=== PATIENT | female | born 2000 | race Caucasian/White ===

== ENCOUNTER 2019-05-06 15:13 | Outpatient (CLI) | payer OTHER, SELFPAY ==
[2019-05-06 15:26] VITALS: BP 102/67; PULSE 95
[2019-05-06 15:45] VITALS: BP 104/81; PULSE 118
--- NOTE | 2019-05-06 18:34 | PM.OBTRLD ---
OB - Triage/Final Diagnosis Evaluation Vital signs: Vital Signs - 24 hr 05/06/19 15:26 05/06/19 15:45 Pulse Rate 95 118 H Blood Pressure 102/67 104/81 Final Diagnosis (1) Vaginal discharge during in third trimester: Code(s): O26.893 - Other specified related conditions, third trimester; N89.8 - Other specified noninflammatory disorders of vagina Status: Acute Plan: Pt concerned for rupture of membranes. ROM testing negative. NST reactive and reassuring. Discharged home w/ precautions.
== END 2019-05-06 16:00 | disposition home or self-care (01) ==
LOC: ANHOBOP 15:23 → ANHOBPP 15:23
PROVIDERS: Visit Provider Obstetrics & Gynecology
DX: O26.859 Spotting complicating pregnancy, unspecified trimester (principal); Z3A.00 Weeks of gestation of pregnancy not specified
CPT/HCPCS: 84112; 99199

== ENCOUNTER 2019-05-22 05:00 | Inpatient (IN) | payer OTHER, SELFPAY ==
[2019-05-22] VITALS (73 sets, daily range): BP systolic 66–185; BP diastolic 40–147; PULSE 60–144; RESP 16–18; TEMP 36.1–37.2; O2SAT 83–100; BMI 26.5
--- NOTE | 2019-05-22 05:00 | LDADM ---
This patient, Ronnie August, was admitted to Labor/Delivery/Recovery 105 on 05/22/19 at 05:00. Plans for labor, pain management and were discussed with patient. Patient/family oriented to hospital policies and general routines including ID bracelet, bed and alarms, visiting hours, pain management, procedures, bathroom and other care routines, personal items, smoking policy, room service/diet and guest tray routines, security routines, and visiting hours. Patient/Family are encouraged to report perceived risks to care and to ask questions if they do not understand what they are told or what they should do. See OBIX for further documentation.
[2019-05-22 05:48] LABS: Basophils Percent Auto 0.4 % (0.2-1.2); Eosinophils Absolute Auto 0.1 K/mm3 (0-0.3); Eosinophils Percent Auto 0.8 % (0-4.4); Hematocrit 32.2 % (37.0-47.0); Hemoglobin 10.9 g/dL (12.0-15.0); Immature Granulocyte Absolute 0.03 K/mm3 (0.00-0.031); Immature Granulocyte Percent A 0.3 % (0-0.5); Lymphocytes Absolute Auto 2.12 K/mm3 (0.9-3.2); Lymphocytes Percent Auto 22.1 % (18.3-44.2); Mean Corpuscular HGB Conc 33.9 g/dl (32-36); Mean Corpuscular Hemoglobin 29.4 pg (26-34); Mean Corpuscular Volume 86.8 fl (80-100); Mean Platelet Volume 11.9 fl (7.4-10.4); Monocytes Absolute Auto 0.5 K/mm3 (0.1-0.6); Monocytes Percent Auto 5.4 % (2.6-8.5); Neutrophils Absolute Auto 6.8 K/mm3 (1.3-6.7); Platelet Count Result 151 k/mm3 (150-375); Red Blood Count 3.71 M/mm3 (4.2-5.4); Red Cell Distribution Width 12.2 % (11.5-14.5); White Blood Count 9.6 K/mm3 (4.5-10.0)
[2019-05-22 06:34] LABS: HIV 1/2 Ab P24 Ag Result Negative (Negative)
[2019-05-22] MEDS: LACTATED RINGERS 1,000 ML 125 ML IV CONT ×4 (06:36→11:32)
[2019-05-22] MEDS: OXYTOCIN 30 UNITS/NS 500 ML 30 UNITS/500 ML BAG IV CONT (06:37)
--- NOTE | 2019-05-22 06:45 | LDADM ---
This patient, Ronnie August, was admitted to Labor/Delivery/Recovery 105 on 05/22/19 at 05:00 for IOL. Plans for labor, pain management and were discussed with patient. Patient/family oriented to hospital policies and general routines including ID bracelet, bed and alarms, visiting hours, pain management, procedures, bathroom and other care routines, personal items, smoking policy, room service/diet and guest tray routines, security routines, and visiting hours. Patient/Family are encouraged to report perceived risks to care and to ask questions if they do not understand what they are told or what they should do. See OBIX for further documentation.
[2019-05-22 08:51] LABS: Rapid Plasma Reagin Non-Reactive (NonReactive)
[2019-05-22] MEDS: TERBUTALINE SULFATE 1 MG/ML VIAL 0.25 MG SUB-Q (11:27)
--- NOTE | 2019-05-22 12:55 | WPDHPUPDATE1 ---
History and Physical Update Update Date/Time: 05/22/19 12:55 History and Physical has been reviewed, including an updated exam of the patient. There are NO changes in the patient's condition. Risks, benefits, and alternatives have been discussed and questions answered. Patient agrees to proceed with procedure.
--- NOTE | 2019-05-22 12:55 | WPDOBADMIT ---
Obstetrics - Admit Note Admission Note: record reviewed. No pertinent additions to the history and/or any subsequent changes in the physical findings that are not consistent with the expected course of the were found. Additions to the history and/or subsequent changes in the physical findings follow. None.
--- NOTE | 2019-05-22 12:56 | PM.OBPRVD ---
OB - Delivery Note Procedure Delivery date: 05/22/19 Route of delivery: Episiotomy description: None Laceration description: None Specimen: Yes (placenta/IUGR) Estimated blood loss (mL): 200 Anesthesia type: Epidural Disposition: floor Narrative: Patient prepped and draped in usual manner for this procedure. Maternal expulsive efforts readily delivered vertex with nuchal cord reduced x2. Further effort delivered the rest the baby without difficulty. Cord was clamped and placenta delivered spontaneously. Cervix vagina and vulva were inspected no lacerations or tears. Uterus was well contracted. This point seizure was considered terminated immediate postop condition mother baby were both excellent. Baby Weeks of gestation at delivery: 38 gender: Female Weight (pounds): 5 Weight (ounces): 15 presentation: vertex Placenta delivery description: Spontaneous cord vessel description: 3 Vessels score one minute: 9 score five minutes: 9
[2019-05-22] MEDS: OXYTOCIN 30 UNITS/NS 500 ML 30 UNITS/500 ML BAG 125 UNITS IV CONT (13:25)
[2019-05-22] MEDS: IBUPROFEN 600 MG TABLET PO (14:49)
[2019-05-22] MEDS: WITCH HAZEL 40 PADS 1 PAD TOPICAL (14:50)
[2019-05-22] MEDS: BENZOCAINE 20% AER SPR (*SP) 56 GM CAN 1 SPRAY TOPICAL (14:50)
--- NOTE | 2019-05-22 16:30 | PC.NURSE ---
PT arrived on unit via wheelchair accompanied by significant other and infant and taken to room 280. PT oriented to room and surrounding area. PT introductions made and plan of care discussed per post , pain management, bottle feeding, daily care activities. PT verbalized understanding of such care.
[2019-05-22] MEDS: ACETAMINOPHEN 325 MG TABLET 650 MG PO (17:28)
[2019-05-23] MEDS: IBUPROFEN 600 MG TABLET PO ×4 (02:25→22:11)
[2019-05-23] MEDS: ACETAMINOPHEN 325 MG TABLET 650 MG PO (03:25)
[2019-05-23 05:34] LABS: Hematocrit 33.3 % (37.0-47.0); Hemoglobin 10.8 g/dL (12.0-15.0)
--- NOTE | 2019-05-23 07:38 | PM.OBDSVD ---
OB - DS: Summary OB Procedures : None OB Procedures Intrapartum: Spontaneous Vag Delivery OB Procedures: : None Time Spent with Patient Time attestation: Total time spent providing and/or coordinating discharge services: DS: Data Data Completed and Pending Pending studies at discharge: Pending at discharge 05/22/19 12:51 Surgical [PTH] Routine Labs on day of discharge: Labs from last 24 hours 05/23/19 05/22/19 05/22/19 04:36 05:36 05:36 Hgb 10.8 L Hct 33.3 L RPR Non-reactive Blood Type A Positive Antibody Screen Negative Discharge Plan Discharge Discharging Clinician: Evens Richard Patient Disposition: Home, Self-Care Activity: as tolerated Diet: as tolerated Patient Instructions: Antibiotic Form Stand Alone Forms: General Discharge Information Follow-up/Referrals: Evens Richard MD [Physician] - 3 Weeks Discharge Medications: New hydrocodone-acetaminophen 5-325 mg Tablet 1 tab PO Q3H PRN (Reason: Moderate Pain (4-6)) Qty: 20 RF: 0 ibuprofen 600 mg Tablet 600 mg PO Q6H PRN (Reason: Cramping) Qty: 30 RF: 0 Continued PNV cmb#95-ferrous fumarate-FA [] 28 mg iron- 800 mcg Tablet 1 tablet PO DAILY RF: 0 Discontinued ondansetron 4 mg Tablet,Disintegrating 4 mg PO Q12H PRN (Reason: Nausea) Qty: 28 RF: 0 Date of admission: 05/22/19 05:00 Primary Care Provider: UNKNOWN,DOCTOR Admitting Provider: Evens Richard Attending physician on admission: Evens Richard
[2019-05-23 07:55] VITALS: BP 103/61; PULSE 70; RESP 16; TEMP 37.4; O2SAT 97
[2019-05-23] MEDS: DOCUSATE SODIUM 100 MG CAPSULE PO (09:17)
--- NOTE | 2019-05-23 14:47 | WPDANLDPN2 ---
Anes-Prog Note L&D Date/Time: 05/23/19 14:47 Comfortable throughout: labor and delivery Neuraxial method: epidural Epidural/Spinal procedure site: clean & non-tender Neuro status: Neuro function grossly intact. Cardiovascular status: normal Respiratory status: normal Airway patency: baseline Mental status: baseline Post-Op hydration status: normal Vital Signs: Last Vital Signs Temp 37.4 C 05/23/19 07:55 Pulse 70 05/23/19 07:55 Resp 16 05/23/19 07:55 BP 103/61 05/23/19 07:55 Pulse Ox 97 05/23/19 07:55 I/O: Intake & Output 05/22/19 05/23/19 05/23/19 23:59 07:59 15:59 Intake Total 1000 Balance 1000 Post-procedural complaints: none Patient feedback: Patient satisfied with anesthetic care.
[2019-05-23 20:35] VITALS: BP 93/55; PULSE 72; RESP 16; TEMP 36.5; O2SAT 100
[2019-05-24] MEDS: IBUPROFEN 600 MG TABLET PO ×2 (03:31→12:44)
--- NOTE | 2019-05-24 07:00 | PC.NURSE ---
Pt introductions made and plan of care discussed per post , pain management, bottle feeding, daily care activities and pending discharge to home. PT verbalized understanding of such care.
[2019-05-24] MEDS: DOCUSATE SODIUM 100 MG CAPSULE PO (08:24)
[2019-05-24 08:30] VITALS: BP 120/77; PULSE 63; RESP 18; TEMP 37.3; O2SAT 97
--- NOTE | 2019-05-24 12:30 | PC.NURSE ---
PT c/o nausea and feeling achy. PT wanted to go home and not wait for anesthesia to evaluate hip and left leg discomfort. PT states its feeding better. PT states not having diarrhea and no fever was indicated at this time. PT denies sob, cough or sore throat or any respiratory issues.PT states feeling better.
--- NOTE | 2019-05-24 13:00 | PC.NURSE ---
PT received discharge instructions per protocol and verbalized understanding of such instructions.
--- NOTE | 2019-05-24 13:30 | PC.NURSE ---
Anesthesia here to evaluate pt's discomfort with left leg and left hip.
--- NOTE | 2019-05-24 13:36 | WPDANESPN ---
Anes - Prog Note Post-Op Date/Time: 05/24/19 13:36 Cardiovascular status: normal Respiratory status: normal Airway patency: baseline Mental status: baseline Post-Op hydration status: normal Vital Signs: Last Vital Signs Temp 99.1 F 05/24/19 08:30 Pulse 63 05/24/19 08:30 Resp 18 05/24/19 08:30 BP 120/77 05/24/19 08:30 Pulse Ox 97 05/24/19 08:30 Laboratory Tests 05/23/19 04:36 Post-procedural complaints: none and other (leg discomfort) Patient Feedback: Patient satisfied with anesthetic care. Other Findings: follow up regarding pt complaints of left leg discomfort. pt post uneventful labor epidural insertion & vaginal delivery. describes sensation as shooting pains down leg . pt denies difficulty with ambulation or other complications. preparing for discharge. reassurance provided. encouraged pt to call department with any concerns.
--- NOTE | 2019-05-24 13:45 | PC.NURSE ---
PT discharged to home ambulatory accompanied by significant other and and taken to waiting car. Follow up appts confirmed
[2019-05-27 08:11] VITALS: BP 109/73; PULSE 95; RESP 16; TEMP 36.6; O2SAT 98
--- NOTE | 2019-05-27 11:57 | PM.OBDSVD ---
OB - DS: Summary OB Procedures : None OB Procedures Intrapartum: Spontaneous Vag Delivery OB Procedures: : None Time Spent with Patient Time attestation: Total time spent providing and/or coordinating discharge services: DS: Data Data Completed and Pending Completed studies during hospitalization: Pending at discharge 05/22/19 12:51 Surgical [PTH] Routine Discharge Plan Discharge Discharging Clinician: Evens Richard Patient Disposition: Home, Self-Care Activity: as tolerated Diet: as tolerated Discharge Instructions: Education: Mom and Baby Guide Given to: Mother Follow-Up: Call your delivering provider's office for an appointment to be seen in: 3 weeks Mom and baby should come to the [facility] for the follow-up appointment. Appointment Date/Time: May 27, 2019 at 8:00 am What to expect at your follow-up visit: Blood Pressure Check Call [phone] if you are unable to keep your appointment time. BREAST CARE: 1. Wear a snug supportive bra. 2. For engorgement discomfort: Bottle Feeding: A. May apply ice packs PERINEAL CARE: 1. Until bleeding stops, use your jocy bottle after urinating 2. Change your pad frequently throughout the day 3. You may take sitz baths several times a day (fill your bathtub with warm water and soak for 20 minutes.) Do NOT bathe in the water 4. No tub baths until seen by your physician - You may shower ACTIVITY: 1. Rest as much as possible. 2. Do not exercise or lift anything heavier than your baby (such as laundry or other children.) 3. Avoid stairs or driving as much as possible. 4. Do not put anything into the vagina. No douching, tampons, or sexual activity until seen by physician. NOTIFY PHYSICIAN IF YOU HAVE ANY QUESTIONS OR IF ANY OF THE FOLLOWING SYMPTOMS OCCUR: 1. If your perineum becomes red, swollen, or more painful than what you have experienced in the hospital. 2. If your vaginal bleeding becomes foul smelling. 3. If your vaginal bleeding becomes more heavy than a period or if your bleeding changes from pink to bright red. However, you may pass an occasional walnut-sized clot once or twice for the first week . 4. If you experience a sharp, shooting pain in you calves. 5. If you discover a hard, reddened area on your breast or if you experience flu-like symptoms. DIET: 1. Eat regular, well-balanced meals. 2. Drink plenty of fluids daily. If , drink to thirst. Patient Instructions: Antibiotic Form Stand Alone Forms: General Discharge Information Follow-up/Referrals: Evens Richard MD [Physician] - 3 Weeks Discharge Medications: New hydrocodone-acetaminophen 5-325 mg Tablet 1 tab PO Q3H PRN (Reason: Moderate Pain (4-6)) Qty: 20 RF: 0 ibuprofen 600 mg Tablet 600 mg PO Q6H PRN (Reason: Cramping) Qty: 30 RF: 0 Continued PNV cmb#95-ferrous fumarate-FA [] 28 mg iron- 800 mcg Tablet 1 tablet PO DAILY RF: 0 Discontinued ondansetron 4 mg Tablet,Disintegrating 4 mg PO Q12H PRN (Reason: Nausea) Qty: 28 RF: 0 Date of admission: 05/22/19 05:00 Primary Care Provider: UNKNOWN,DOCTOR Admitting Provider: Evens Richard Discharge Date/Time: 05/24/19 13:45 Attending physician on admission: Evens Ricahrd
== END 2019-05-24 13:45 | disposition home or self-care (01) | DRG 560 ==
LOC: ANHLDR 05:27 → ANHOB2 16:37
PROVIDERS: Admitting Provider Obstetrics & Gynecology; Visit Provider Obstetrics & Gynecology
DX: O36.5930 Maternal care for other known or suspected poor fetal growth, third trimester, not applicable or unspecified (principal); Z3A.38 38 weeks gestation of pregnancy; Z37.0 Single live birth; Z23 Encounter for immunization; O76 Abnormality in fetal heart rate and rhythm complicating labor and delivery; O69.81X0 Labor and delivery complicated by cord around neck, without compression, not applicable or unspecified
CPT/HCPCS: 36415; 85014; 85018; 85025; 86592; 86703; 86850; 86900; 86901; 88307; A9270; G0432; J2590; J2795; J3010; J3105; J7030; J7120

== ENCOUNTER 2021-11-24 11:45 | Outpatient (CLI) | payer OTHER, SELFPAY ==
--- NOTE | ~2021-11-24 | XR_ITS ---
XR abdomen/kub 1V 11/24/2021 11:58 Indication: Constipation Procedure: KUB Comparison: No prior studies for comparison. Findings: There are cholecystectomy clips. Bowel gas pattern is nonobstructive. No acute osseous abno rmality. There are pelvic phleboliths. No definite renal stones. Impression: 1: Nonobstructive bowel gas pattern. Reviewed, dictated and finalized at location A. Impression: 1: Nonobstructive bowel gas pattern.
== END 2021-11-24 11:46 | disposition home or self-care (01) ==
LOC: ANHIMG 11:47
PROVIDERS: PCP Physician Assistant; Visit Provider Nurse Practitioner
DX: R19.15 Other abnormal bowel sounds (principal); R14.0 Abdominal distension (gaseous); R10.9 Unspecified abdominal pain; K59.00 Constipation, unspecified
CPT/HCPCS: 74018

== ENCOUNTER 2021-12-28 00:20 | Day surgery (SDC) | payer OTHER, SELFPAY ==
[2021-12-21 09:31] VITALS: BMI 23.8
--- NOTE | 2021-12-21 09:38 | PC.NURSE ---
Report to the Outpatient Waiting Room, entrance under the green pavilion located off [facility], at time _0800_ on date _[id number]_. Planned Procedure Time: _1000_. Time changes happen often and if your time is changed the preop area will call you the afternoon before. - You and your visitor will be asked to self-screen and do not enter if you have any COVID symptoms. - We encourage only one visitor and NO visitors under age 16 are allowed at this time. Your visitor will receive communication by the phone number that is given day of service. - The patient visitor is requested to social distance or may leave the building when not with patient due to restrictions. - A mask is required within the hospital. Patients may have clear liquids (water, carbonated beverages, clear teas, apple juice) until 3 hours prior to surgery with a maximum of 20 ounces. - No food from midnight until time of surgery Take the following medications with a SIP of water the morning of surgery: __Buspirone and Clonidine Medications to discontinue per physician None Date to take last dose Please no make-up, nail nigerien, hairspray, perfume, deodorant, or body powder the day of surgery. No jewelry (including any body piercings) or valuables the day of surgery, leave them at home. Please take a shower or bath the night before, or the morning of, surgery with an antibacterial soap. Wear comfortable, loose fitting clothing. - Jewelry must be removed prior to entering the operating room. Rings and piercings that are not removed may be cut off. - The hospital will not accept responsibility for valuables. - Please leave all valuables, including medications, at home the day of surgery. If you are going home after surgery, a licensed trash truck driver must drive you home. - NO public transportation without another adult. - We recommend that an adult stay with you for 24 hours following discharge. - We also recommend that you do not drive, make important decision, drink alcoholic beverages, or take any drugs that were not prescribed by your health care provider for at least 24 hours after your discharge time. Follow any additional instructions given to you from your surgeon. If you or anyone in your household have experienced Covid symptoms in the past week, please notify your surgeon or the nurse liaison at the phone number below for possible testing. Telephone instructions given to _Patient___and asked if any additional questions and then verbalized understanding. Patient advised to call surgeon office or pre surgery nurse liaison [phone] if any additional questions.
[2021-12-28] VITALS (13 sets, daily range): BP systolic 74–127; BP diastolic 56–83; PULSE 60–108; RESP 16–20; TEMP 36.4–36.7; O2SAT 96–100
[2021-12-28] MEDS: LACTATED RINGERS 1,000 ML 30 ML IV CONT ×3 (08:20→15:28)
--- NOTE | 2021-12-28 08:58 | P.PNAN_ITS ---
Anes - Initial Pre Proc Eval Procedure: Operation Date: 12/28/21 10:00 Proposed Procedures p Diagnostic Laparoscopy - Rafael Mena MD Date/Time: 12/28/21 08:58 Surgeon: Rafael Mena MD Pre Op Diagnosis: Pelvic Pain Patient Data Age: 21 Gender: F Height: 1.57 m Weight: 56.5 kg Last Vital Signs Temp 36.7 C 12/28/21 07:51 Pulse 108 H 12/28/21 07:51 Resp 18 12/28/21 07:51 BP 108/57 L 12/28/21 07:51 Pulse Ox 99 12/28/21 07:51 O2 Del Method Room Air 12/28/21 07:51 Allergies Allergy/AdvReac Type Severity Reaction Status Date / Time diphenhydramine Allergy Severe Dyspnea / Verified 12/28/21 08:03 SOB Penicillins Allergy Severe Difficulty Verified 12/28/21 08:03 Breathing metoclopramide [From Reglan] AdvReac Other Verified 12/28/21 08:03 prochlorperazine AdvReac Other Verified 12/28/21 08:03 [From Compazine] Home Medications Medication Instructions Recorded Confirmed Type amitriptyline 25 mg tablet 25 mg PO QHS 11/24/21 12/28/21 History buspirone 7.5 mg tablet 7.5 mg PO QAM 12/21/21 12/28/21 History clonidine HCl 0.2 mg tablet 0.2 mg PO BID 12/21/21 12/28/21 History Patient hx anesthesia problems: none Family hx anesthesia problems: none Results Review: All pre-operative results and documents have been reviewed as part of the pre- operative evaluation. [facility] Past Medical History Medical History Hernia Kidney stone Surgical History Surgical History Hx of cholecystectomy Family History Family History Mother Family history of lupus erythematosus Other Carcinoma of colon Diabetes mellitus Social History Social History (Updated 12/28/21 @ 08:59 by Abelino Oneal MD) Smoking status: Current every day smoker Second hand tobacco smoke exposure: No Alcohol intake: never Substance use: current Substance use type: marijuana Other substance usage details: Daily Living arrangements: alone Gender identity (if verbalized by the patient): Female Spiritual care concerns: No Anes - Eval Final PreProcedure Day of Procedure 12/28/21 08:58 Patient weight: normal Heart: regular rate and rhythm Lungs: clear to auscultation Airway: Mallampati scale class II Neurological: alert and oriented Last oral intake: >/= 8 hours ASA classification: II Emergent: no Anesthetic plan: proceed Anesthesia type and monitoring: general ETT and standard monitoring Results Review: All pre-operative results and documents have been reviewed as part of the pre- operative evaluation. Informed Consent: The patient's anesthetic plan and its attendant risks and benefits were discussed with the patient/family/POA. Questions were solicited and answers provided to the satisfaction of the patient/family/POA.
[2021-12-28] MEDS: ACETAMINOPHEN 500 MG TABLET 1000 MG PO (09:12)
[2021-12-28] MEDS: KETOROLAC 15 MG/ML VIAL (*BKC) IV PUSH (09:12)
--- NOTE | 2021-12-28 09:42 | WPDHPUPDATE1 ---
History and Physical Update Update Date/Time: 12/28/21 09:42 History and Physical has been reviewed, including an updated exam of the patient. There are NO changes in the patient's condition. Risks, benefits, and alternatives have been discussed and questions answered. Patient agrees to proceed with procedure.
--- NOTE | 2021-12-28 12:30 | P.OP_ITS ---
Procedure Note - Detailed Date of Procedure 12/28/21 Pre-op Diagnosis Pelvic Pain Post-op Diagnosis Same ( with endometriosis) Procedure Performed Diagnostic laparoscopy Surgeon Rafael Mena MD Anesthesia General Indications Pelvic pain Findings Deep infiltrating endometriosis and multiple lesions in the posterior cul-de-sac bilaterally. And deep in the pelvis. There was some lesions on the bladder. There were 2 large lesions on the bladder. Normal-appearing ovaries and tubes Description of Procedure The patient was taken to the operating room. She was prepped and draped in the dorsal lithotomy position after induction general anesthesia. A 5 mm incision was made with a scalpel on the abdominal skin in the left upper quadrant of the abdomen. A 5 mm trocar was inserted into the intra-abdominal cavity under direct visualization the scope. In the same fashion a11 mm left lower quadrant trocar was inserted and a 11 mm infraumbilical trocar was inserted. the ovaries were suspended to the abdominal wall anteriorly using a Elia- Lashaun needle was passed through the abdominal wall and then passed through the ovary. This carried a 0 Vicryl suture that was used to suspend the ovary. As it was fixed through the center of the ovary and up through the abdominal wall and held in place with a hemostat on the exterior abdomen. A LOUIS manipulator is placed the intrauterine cavity. This was used to manipulate the uterus. It was placed using a tenaculum and a speculum. The diagnostic tip of the LOUIS was inserted and the balloon was inflated. All of the peritoneum in the posterior cul-de-sac was removed save the peritoneum over the rectum. From the suspensory ligament the ovary and the infundibulopelvic ligament and the pelvic brim down to the cervix and medially to the rectum bilaterally the peritoneum was removed. Some of the deep infiltrating endometriosis in the deep cul-de-sac was removed and required resection of some of the fat. Cautery was then used to make the whole area hemostatic. Heme Interceed was placed over the pelvis after copious irrigation was used to irrigate the cut surfaces. Endometriosis was resected and cauterized on the bladder. This was done using sharp and blunt dissection and cautery. The uterus and ovaries were allowed to fall back in the pelvis after the Interceed was placed. The pneumoperitoneum was reduced. The trocars were removed. Skin was closed with subcuticular 4 micro. The patient's incisions were covered with Dermabond. She was taken recovery room in stable condition. Sponge lap and needle counts were correct x2. Estimated Blood Loss 125 Pathology Yes Complications No immediate complications Condition Stable Disposition Same day
[2021-12-28] MEDS: ONDANSETRON INJ 4 MG/2 ML VIAL IV PUSH (12:58)
[2021-12-28] MEDS: fentaNYL CITRATE INJ (*CRX) 100 MCG/2 ML VIAL 25 MCG IV PUSH ×6 (13:06→16:05)
--- NOTE | 2021-12-28 13:30 | SUR.PHASEII ---
Patient feels like she has to have a BM. Patient is using the bathroom in outpatient.
[2021-12-28] MEDS: SCOPOLAMINE 1.5 MG PATCH TRANSDERM (13:52)
[2021-12-28] MEDS: diphenhydrAMINE HCl INJ 50 MG/ML VIAL 12.5 MG IV PUSH ×2 (15:10→15:26)
[2021-12-28] MEDS: diazePAM INJ (*CRX) 10 MG/2 ML SYRINGE 2.5 MG IV PUSH (16:27)
--- NOTE | 2021-12-28 16:38 | SUR.PHASEII ---
delay discharge due to pain and nausea. this nurse has called dr locke at [address] brown at 1630. meds given per apr. VSS will continue to monitor.
[2021-12-28] MEDS: oxyCODONE HCL (*CRX) 5 MG TAB IR PO (17:00)
== END 2021-12-28 17:40 | disposition home or self-care (01) ==
PROVIDERS: PCP Physician Assistant; Visit Provider Obstetrics & Gynecology
PROC: (CPT 49320; principal; 2021-12-28 10:00)
DX: N80.322 Deep endometriosis of the posterior cul-de-sac (principal); N80.A0 Endometriosis of bladder, unspecified depth; N80.30 Endometriosis of pelvic peritoneum, unspecified; R10.2 Pelvic and perineal pain; F12.90 Cannabis use, unspecified, uncomplicated
CPT/HCPCS: 58662; 88305; A9270; J0330; J1100; J1200; J1885; J2250; J2405; J2704; J2710; J3010; J3360; J7030; J7120

== ENCOUNTER 2024-10-29 12:10 | Emergency (ER) | payer OTHER, SELFPAY ==
--- NOTE | ~2024-10-29 | CT_ITS ---
EXAMINATION: CT abdomen pelvis wo con DATE: 10/29/2024 14:19 INDICATION: Right flank pain. History of stones. TECHNIQUE: Computed tomography (CT) of the abdomen and pelvis was performed without intravenous contrast. The dose-length product was 185.27 mGy-cm. Automated exposure control and iterative reconstruction technique were employed. COMPARISON: CT dated 02/20/2018 FINDINGS: There are breast implants. Lung bases unremarkable. Heart size normal. No significant pleural or pericardial effusion. Status post cholecystectomy. Fatty infiltration of the liver. The spleen, pancreas, adrenal glands and kidneys are unremarkable for noncontrast CT. Nonobstructive bowel gas pattern. No renal stones or hydronephrosis. No definite ureteral stones. There are pelvic phleboliths. No free air or free fluid. No significant vascular abnormality. IMPRESSION: 1. No acute abdominal abnormality. Reviewed, dictated and finalized at location O.
[2024-10-29 12:36] VITALS: BP 127/105; PULSE 81; RESP 16; TEMP 36.6; O2SAT 100
--- NOTE | 2024-10-29 12:41 | ED_ITS ---
HPI - Abdominal Pain General Chief Complaint: Urogenital-Female Stated Complaint: N/V ABD PAIN, KIDNEY STONE Time Seen by Provider: 10/29/24 14:57 Focused HPI: 24-year-old female presents [facility] complaining of right flank pain last 3 weeks. Patient says the pain has gotten significantly worse over the last 3 days and she is having nausea and vomiting. Patient said she had an ultrasound and a CT abdomen pelvis performed 3 weeks ago to [facility], she does not know the results of her CT but states that the ultrasound said she had 0.6 mm stone in the right kidney. Patient has a history of kidney stones. Patient denies any urinary symptoms, fevers, body aches, chills or any other symptoms. GENERAL: Well-appearing, well-nourished, and in no acute distress. HEAD: Normocephalic, atraumatic. CHEST: Clear to auscultation. ?No respiratory distress. HEART: Regular rate and rhythm.? NEURO: ?Alert and oriented x3. GI: Abdomen flat, soft, nondistended, nontender. Bowel sounds active. No guarding or rigidity. No rebound tenderness. Right CVA tenderness. Patient screened in triage and initial orders placed.? ?Additional care and disposition to be based upon?diagnostic testing and treatment. Source: patient and RN notes reviewed Mode of arrival: ambulatory Limitations: no limitations History of Present Illness HPI narrative: Agree with MSE note. Related Data Home Medications ?Medication ?Instructions ?Recorded ?Confirmed ?Last Taken ?Type amitriptyline 25 mg tablet 25 mg PO QHS 11/24/2112/28 Unknown History buspirone 7.5 mg tablet 7.5 mg PO QAM 12/21/2112/28 Unknown History clonidine HCl 0.2 mg tablet 0.2 mg PO BID 12/21/2111/10 Unknown History Allergies Allergy/AdvReac Type Severity Reaction Status Date / Time Penicillins Allergy Severe Difficulty Verified 10/29/24 12:12 Breathing metoclopramide (From Reglan) AdvReac Other Verified 10/29/24 12:12 prochlorperazine (From AdvReac Other Verified 10/29/24 12:12 Compazine) Review of Systems 2 Review of Systems: CONSTITUTIONAL: Denies fever, chills, or sweats. EYES: Denies visual changes, redness, or discharge. ENT: Denies rhinorrhea, congestion, sore throat, or otalgia. CARDIOVASCULAR: Denies chest pain, palpitations, or edema. RESPIRATORY: Denies cough or dyspnea. GASTROINTESTINAL: Denies abdominal pain, or diarrhea. Positive for right flank pain, nausea and vomiting. GENITOURINARY: Denies dysuria or hematuria. SKIN: Denies rash or itching. MUSCULOSKELETAL: Denies back pain, joint pain, or myalgia. NEUROLOGIC: Denies headache, numbness, or weakness. PSYCHIATRIC: Denies anxiety or depression. All other systems reviewed are negative, except as documented in HPI. [facility] Past Medical History Medical History Kidney stone Hernia Surgical History Surgical History Hx of cholecystectomy Family History Family History Mother Family history of lupus erythematosus Other Carcinoma of colon Diabetes mellitus Social History Social History Smoking status: Current every day smoker Second hand tobacco smoke exposure: No Alcohol intake: never Substance use: current Substance use type: marijuana Other substance usage details: Daily Living arrangements: alone Gender identity (if verbalized by the patient): Female Spiritual care concerns: No Comments At the time of my signature, I reviewed and agree with the nursing past medical, surgical, social, and family history. There is no relevant family history pertinent to the patient complaint. Exam 2 Narrative: GENERAL: This is a well-nourished, well-developed adult, in no apparent distress. They are non ill-appearing, nontoxic appearing. HEAD: normocephalic, atraumatic. EYES: Sclera clear/white. Conjunctiva normal. Vision is grossly intact. Extraocular movements intact EARS: External ears normal, Hearing grossly intact. NOSE: External nose normal THROAT: Mucous membranes moist, NECK: Neck supple, CARDIOVASCULAR: Regular rate and rhythm RESPIRATORY: Clear to auscultation. Breath sounds equal bilaterally. No wheezes, rales, or rhonchi. GASTROINTESTINAL: Abdomen soft, non-tender, nondistended. Bowel sounds are active. No hepato-splenomegaly, or palpable masses. No guarding or rigidity. No rebound tenderness. SKIN: warm, Dry, intact with no suspicious lesions or rash, good texture and turgor. NEURO: awake, alert, and oriented to person, place and time. There were no obvious focal neurologic abnormalities. EXTREMITIES: No joint tenderness, effusion, or edema noted. BACK: Nontender without deformity. Right CVA tenderness. Course Course Emergency Course: Portions of this record may have been created with voice recognition software Vital Signs Vital signs: Vital Signs Temperature 97.8 F 10/29/24 12:36 Pulse Rate 81 10/29/24 12:36 Respiratory Rate 16 10/29/24 12:36 Blood Pressure 127/105 H 10/29/24 12:36 Pulse Oximetry 100 10/29/24 12:36 Oxygen Delivery Room Air 10/29/24 12:36 Temperature 97.8 F 10/29/24 12:36 Pulse Rate 64 10/29/24 14:40 Respiratory Rate 18 10/29/24 14:40 Blood Pressure 111/78 10/29/24 14:40 Pulse Oximetry 100 10/29/24 14:40 Oxygen Delivery Room Air 10/29/24 12:36 Reviewed MDM - Abdominal Pain MDM Narrative Medical decision making narrative: CBC unremarkable, no leukocytosis. Chemistry unremarkable. Urine is without evidence of infection, there was blood present. No peritoneal findings on exam. CT abdomen pelvis does not show any acute findings. No evidence of renal stone or hydronephrosis present on CT. Patient said she had ultrasound did show a very small stone. Patient also reports that her previous ultrasound showed that she has a renal cyst. No cyst noted on CT abdomen pelvis. Though some imaging limited due to a non contrast CT. It is very possible stone might have passed. Hematuria still present. Patient reported her pain and nausea and vomiting are uncontrollable. Patient has not vomited once while she has been here in our ED. No tachycardia, vital signs hemodynamically stable. Patient does not appear clinically dehydrated. Labwork reassuring. Patient given a dose of Zofran without improvement of her nausea. Repeat Zofran and ketorolac ordered. Will Refer patient to urology for outpatient workup for the hematuria further evaluation of her kidneys. Patient is dissatisfied with findings. Explained to patient we were unable to see the testing has been performed at an outside hospital through care everywhere as we do not have access to it and is still very positive the patient passed this stone that she states was 0.6 mm. Nurse informed me patient is refusing pain medication and Zofran. Spoke to patient she stated the nurse was rude to her which is why she refused it. Patient was on the phone talking to her doctor's office when I was trying to talk to her about pain control and I told her I would return when she is done with conversation on the phone. Patient then called out and said she would like to be discharged because she is going to [facility] because she said they are going to admit her and take out the kidney stone. Patient still refusing pain medication and Zofran, she is refusing a p.o. challenge would like to seek care elsewhere. Will send a prescription over of Zofran have her follow up outpatient with Urology. If patient does go to [facility] she was advised she may continue the care and see the doctors over there if needed. Discussed physical exam findings. Advised supportive measures and signs/symptoms to go to the ER. Pt is appropriate for outpt treatment and f/u. Differential Diagnosis Differential diagnosis: Likely other (Renal stone, obstructing stone, urinary tract infection, pyelonephritis, back pain) Lab Data Attestation: I reviewed the patient's lab results. 10/29/24 13:12 10/29/24 13:12 Labs: Lab Results 10/29/24 10/29/24 Range/Units 13:12 13:32 WBC 6.9 (4.5-10.0) K/mm3 RBC 4.71 (4.2-5.4) M/mm3 Hgb 13.7 (12.0-15.0) g/dL Hct 40.6 (37.0-47.0) % MCV 86.2 (80-100) fl MCH 29.1 (26-34) pg MCHC 33.7 (32-36) g/dl RDW 12.3 (11.5-14.5) % Plt Count 146 L (150-375) k/mm3 MPV 12.4 H (7.4-10.4) fl Immature Gran % (Auto) 0.1 (0-0.5) % Neut % (Auto) 75.4 H (45.5-73.1) % Lymph % (Auto) 15.5 L (18.3-44.2) % [place] % (Auto) 6.4 (2.6-8.5) % Eos % (Auto) 2.2 (0-4.4) % Baso % (Auto) 0.4 (0.2-1.2) % Lymph # (Auto) 1.06 (0.9-3.2) K/mm3 [place] # (Auto) 0.4 (0.1-0.6) K/mm3 Eos # (Auto) 0.2 (0-0.3) K/mm3 Baso # (Auto) 0.0 (0.0-0.1) K/mm3 Abs Immat Gran (auto) 0.01 (0.00-0.031) K/mm3 Absolute Neuts (auto) 5.2 (1.3-6.7) K/mm3 Absolute Nucleated RBC 0.000 (0.0-0.012) K/mm3 Nucleated RBC % 0.0 (0.0-0.2) % Sodium 141 (137-145) mmol/L Potassium 4.1 (3.4-5.0) mmol/L Chloride 107 (98-107) mmol/L Carbon Dioxide 27 (22-30) mmol/L Anion Gap 7 (4-12) mmol/L BUN 3 L (7-17) mg/dL Creatinine 0.67 L (0.7-1.0) mg/dL Estim Creat Clear Calc 91 ml/min Estimated GFR > 60 (59 - ) Glucose 94 (65-110) mg/dL Calcium 9.3 (8.4-10.2) mg/dL Total Bilirubin 0.7 (0.2-1.3) mg/dL AST 22 (14-36) U/L ALT 12 (6-35) U/L Alkaline Phosphatase 51 (38-126) U/L Total Protein 7.3 (6.3-8.2) g/dL Albumin 4.5 (3.5-5.1) g/dL Lipase 75 (23-300) U/L Urine Color Yellow (Yellow) Urine Appearance Cloudy H (Clear) Urine pH 7.0 (5.0-9.0) Ur Specific [place] 1.013 (1.001-1.035) Urine Protein Negative (Negative) mg/dL Urine Glucose (UA) Negative (Negative) mg/dL Urine Ketones Negative (Negative) mg/dL Ur Blood (Man) 1+ H (Negative) Urine Nitrate Negative (Negative) Urine Bilirubin Negative (Negative) Urine Urobilinogen 1.0 (<2.0) mg/dL Leukocyte Esterase Rfl Negative (Negative) GRIS/UL Urine RBC 0-2 (0-2) /hpf Urine WBC 0-5 (0-3) /hpf Ur Squamous Epith Cells Occasional (Few) /hpf Urine Bacteria None seen /hpf Urine Casts 0-2 Urine Test Negative Imaging Data Radiologist's impression: ITS Impressions Abdomen/Pelvis CT 10/29/24 14:29 IMPRESSION: 1. No acute abdominal abnormality. Critical Care Time Critical Care Time Critical Care Time: No Discharge Plan Discharge Clinical Impression: Right flank pain Patient Disposition: Home Condition: Stable Instructions: Antibiotic Form, Kidney Stones (ED) Additional Instructions: Your CT abdomen pelvis not show any evidence of a kidney stone today. It Is possible that you may have passed it. Lab work is reassuring. Please follow-up with Urology in 3-5 days for further evaluation of the blood in your urine. You may take ibuprofen 600 mg to 800 mg every 6-8 hours. Do not exceed more than 800 mg of ibuprofen per dose. Do not exceed more than 3200 mg ibuprofen in a day. You may take up to 1000 mg Tylenol every 6-8 hours. Do not exceed 1000 mg per dose, do exceed more than 4000 mg of Tylenol in a day. Take Zofran as needed for nausea vomiting. Please return to the ER if you developed worsening flank pain, fevers, abdominal pain, nausea, vomiting, urinary symptoms, change in condition, or any other concerns. Patient Language: Tajik Prescriptions: New ondansetron 4 mg tablet,disintegrating 4 mg PO Q8H PRN (Reason: nausea and vomiting) Qty: 14 0RF No Action amitriptyline 25 mg tablet 25 mg PO QHS clonidine HCl 0.2 mg tablet 0.2 mg PO BID buspirone 7.5 mg tablet 7.5 mg PO QAM hydrocodone-acetaminophen 5-325 mg tablet 1 tablet PO Q4H PRN (Reason: pain) Qty: 25 0RF Follow-up/Referrals: Mustapha Contreras MD [Physician, Urology] Edison,Daniela Lloyd [Primary Care Provider, Unknown] Time of Disposition: 16:05
--- OUTSIDE RECORDS SUMMARY | 2024-10-29 13:00 | XMS_ITS | Clinical Summary ---
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 measures simple attenuation.. 2.2 cm cyst in the left ovary . Uterus appears grossly unremarkable. Multiple pelvic phleboliths are noted. VASCULATURE: No abdominal aortic aneurysm. MUSCULOSKELETAL: No significant abnormality. OTHER: No other abnormality. IMPRESSION: 1. No evidence of urolithiasis or hydroureteronephrosis. 2. 4.5 cm likely ovarian cyst. Thin higher attenuation dependent area could represent a small amount of layering blood products within the cyst. This can be further evaluated with pelvic ultrasound. 3. Small amount of simple attenuation pelvic free fluid. THIS IS AN ELECTRONICALLY VERIFIED FINAL REPORT 08/25/2024 8:07 AM - Electronically signed by Erlin Fuentes M.D. MZ: MZ Report ID: [id number] Reading Location: [place] [address] Aleksey Mi MD IMG CT PROCEDURES Final Result * Sepsis Lactate w/ Reflex (08/25/2024 6:51 AM CDT) Sepsis Lactate 0.7 0.7 - 2.0 mmol/L Blood 08/25/2024 6:51 AM CDT 08/25/2024 6:57 AM CDT Aleksey Mi MD LAB BLOOD ORDERABLES Final Res ult [facility] 1 [facility] Department of Laboratories [place], [place] [id number] * eGFR (08/25/2024 6:51 AM CDT) eGFR >90 >=60 mL/min/1. 73 m2 Comment: Interpretive Data Reference Interval Normal >/= 90 mL/min/1.73m2 Mildly decreased* 60 - 89 mL/min/1.73m2 Mildly to moderately decreased 45 - 59 mL/min/1.73m2 Moderately to severely decreased 30 - 44 mL/min/1.73m2 Severely decreased 15 - 29 mL/min/1.73m2 Kidney Failure < 15 mL/min/1.73m2 *Relative to young adult level Estimated glomerular filtration rate is determined by the 2020 CKD-EPI equation recommended by the National Kid[employer] (A Unifying Approach to GFR Estimation: Recommendations of the NKF-ASK Task Force on Reassessing the Inclusion of Race in Diagnosing Kidney Disease, JASN 2020). The CKD-EPI equation should not be used for patients with unstable renal function and has not been validated in children and those over 70. Current interpretive data was last reviewed 2020. Blood 08/25/2024 6:51 AM CDT 08/25/2024 6:56 AM CDT us Aleksey Mi MD LAB BLOOD ORDERABLES Final Res ult [facility] ([place]) 1 [facility] Department [place] [address] * (ABNORMAL) Differential, auto (08/25/2024 6:51 AM CDT) Neutrophil abs 7.75(H) 1.50 - 6.50 K/cumm Imm gran abs 0.06 0.00 - 0.10 K/cumm [facility] ([place]) Lymphocyte abs 1.30 0.80 - 3.30 K/cumm [facility] ([place]) Monocyte abs 0.77 0.20 - 0.80 K/cumm [facility] ([place]) Eosinophil abs 0.04 0.00 - 0.50 K/cumm [facility] ([place]) Basophil abs 0.03 0.00 - 0.10 K/cumm [facility] ([place]) Neutrophil pct 77.9 % [facility] ([place]) Comment: Interpretive Data Percent cell count reference ranges are not reported, since discordance with absolute values may lead to misinterpretation of CBC data. Current Interpretive Data was last revised on 2017. Imm gran pct 0.6 % [facility] ([place]) Comment: Interpretive Data Percent cell count reference ranges are not reported, since discordance with absolute values may lead to misinterpretation of CBC data. Current Interpretive Data was last revised on 2017. Lymphocyte pct 13.1 % [facility] ([place]) Comment: Interpretive Data Percent cell count reference ranges are not reported, since discordance with absolute values may lead to misinterpretation of CBC data. Current Interpretive Data was last revised on 2017. Monocyte pct 7.7 % [facility] ([place]) Comment: Interpretive Data Percent cell count reference ranges are not reported, since discordance with absolute values may lead to misinterpretation of CBC data. Current Interpretive Data was last revised on 2017. Eosinophil pct 0.4 % [facility] ([place]) Comment: Interpretive Data Percent cell count reference ranges are not reported, since discordance with absolute values may lead to misinterpretation of CBC data. Current Interpretive Data was last revised on 2017. Basophil pct 0.3 % [facility] ([place]) Comment: Interpretive Data Percent cell count reference ranges are not reported, since discordance with absolute values may lead to misinterpretation of CBC data. Current Interpretive Data was last revised on 2017. Blood 08/25/2024 6:51 AM CDT 08/25/2024 6:56 AM CDT us Aleksey Mi MD LAB BLOOD ORDERABLES Final Res ult [facility] ([place]) 1 [facility] [place] [address] * (ABNORMAL) CBC with auto differential (08/25/2024 6:51 AM CDT) WBC 9.95(H) 3.80 - 9.90 K/cumm Hgb 11.8(L) 11.9 - 15.5 g/dL [facility] ([place]) Hct 34.6(L) 35.6 - 45.5 % [facility] ([place]) Plt 198 150 - 400 K/cumm [facility] ([place]) MPV 12.9(H) 9.1 - 12.3 fL [facility] ([place]) RBC 4.08 3.90 - 5.20 M/cumm [facility] ([place]) MCV 84.8 81.3 - 96.4 fL [facility] ([place]) MCH 28.9 27.1 - 33.3 pg [facility] ([place]) MCHC 34.1 32.3 - 35.7 g/dL [facility] ([place]) RDW CV 12.6 11.1 - 14.9 % [facility] ([place]) RDW SD 38.9 35.7 - 48.1 fL [facility] ([place]) NRBC abs 0.00 0.00 - 0.01 K/cumm [facility] ([place]) Blood 08/25/2024 6:51 AM CDT 08/25/2024 6:56 AM CDT us Aleksey Mi MD LAB BLOOD ORDERABLES Final Res ult [facility] ([place]) 1 [facility] Department [place] [address] * (ABNORMAL) Comprehensive metabolic panel (08/25/2024 6:51 AM CDT) Sodium 135 135 - 145 mmol/L Potassium, pl 3.0(C) 3.3 - 4.9 mmol/L [facility] ([place]) Comment:Critical Result call ed by [email or web address] at 2024-08-25 07:21:02. Result Read Back by KARTHIK RICE-ER Chloride 98 97 - 110 mmol/L [facility] CO2 24 22 - 32 mmol/L [facility] ([place]) Anion gap 13 2 - 15 mmol/L [facility] ([place]) BUN 4(L) 6 - 25 mg/dL [facility] ([place]) Creatinine 0.71 0.60 - 1.10 mg/dL [facility] ([place]) Glucose 133 70 - 199 mg/dL [facility] ([place]) Comment: Interpretive Data Fasting glucose >/= 126 mg/dl is diagnostic for diabetes. Fasting is defined as no caloric intake for at least 8 hours. Fasting glucose between 100 mg/dl to 125 mg/dl is diagnostic of prediabetes. In a patient with classic symptoms of hyperglycemia or hyperglycemic crisis, a random glucose >/= 200 mg/dl is diagnostic for diabetes. In the absence of unequivocal hyperglycemia, results should be confirmed by repeat testing. The classification and Diagnosis of Diabetes Diabetes Care 2021; 46: S19-S40. Current interpretive data was last revised 2022. Calcium 8.7 8.5 - 10.3 mg/dL [facility] ([place]) Bilirubin, total 0.3 0.1 - 1.2 mg/dL [facility] ([place]) Protein, pl 6.6 6.5 - 8.5 g/dL [facility] ([place]) Albumin 3.7 3.5 - 5.0 g/dL [facility] ([place]) Alk phos 53 40 - 130 Units/L [facility] ([place]) ALT 9 7 - 45 Units/L [facility] ([place]) AST 12 10 - 45 Units/L [facility] ([place]) Blood 08/25/2024 6:51 AM CDT 08/25/2024 6:56 AM CDT us Aleksey Mi MD LAB BLOOD ORDERABLES Final Res ult [facility] ([place]) 1 [facility] Department [place] [address] * (ABNORMAL) Urinalysis reflex to microscopic and culture Urine (08/25/2024 6:34 AM CDT) Color, ur Yellow Yellow Clarity, ur Turbid(A) Clear [facility] ([place]) Specific gravity, ur 1.017 1.003 - 1.030 [facility] ([place]) pH, urine 7.0 [facility] ([place]) Comment: Interpretive Data U rine pH is affected by diet, medications, systemic acid-base disturbances, and renal tubular function. pH may affect urinary stone formation. For example, urine pH below 6.0 may help reduce the tendency for calcium phosphate stones and pH greater than 6.0 may reduce the tendency for uric acid stone formation. Source: [facility] Current Interpretive Data was last revised on 2017 Protein, ur ql Trace Negative [facility] ([place]) Glucose, ur ql Negative Negative [facility] ([place]) Ketones, ur Negative Negative [facility] ([place]) Bilirubin, ur Negative Negative [facility] ([place]) Blood, ur 2+(A) Negative [facility] ([place]) Urobilinogen, ur 2.0(A) <2.0 mg/dL [facility] ([place]) Nitrite, ur Positive(A) Negative [facility] ([place]) Leukocyte esterase, ur 3+(A) Negative [facility] ([place]) UA reflex comment Reflex to microscopic UA will be performed. [facility] ([place]) Urine 08/25/2024 6:34 AM CDT 08/25/2024 6:38 AM CDT us Brittany Carrillo MD LAB MICROBIOLOGY - GENERAL ORDER BETTY Final Result Performing Organization Address [facility] Co de Phone Number [facility] ([place]) 1 [facility] [place] [address] * hCG, urine, qualitative (08/25/2024 6:34 AM CDT) HCG, ur Negative Negative Urine 08/25/2024 6:34 AM CDT 08/25/2024 6:38 AM CDT us Brittany Carrillo MD LAB URINE ORDERABLES Final Resul t Performing Organization Address [facility] de Phone Number [facility] ([place]) 1 [facility] [place] [address] * (ABNORMAL) Urinalysis, microscopic only (08/25/2024 6:34 AM CDT) WBC, ur 21-50(A) 0 - 5 /HPF RBC, ur 6-10(A) 0 - 2 /HPF [facility] ([place]) Epithelial cells, squamous, ur 11-20(A) 0 - 5 /HPF [facility] ([place]) Bacteria, ur 4+(A) [facility] ([place]) Mucous, ur Present(A) [facility] ([place]) Hyaline casts, ur 1-5 0 - 10 /LPF [facility] ([place]) Culture Reflex Comment Reflex to urine culture will be performed. [facility] ([place]) Urine 08/25/2024 6:34 AM CDT 08/25/2024 6:38 AM CDT Brittany Carrillo MD LAB URINE ORDERABLES Final Resul t Performing Organization Address [facility] de Phone Number [facility] ([place]) 1 [facility] [place] [address] * (ABNORMAL) Urine culture Urine (08/25/2024 6:34 AM CDT) Report Final Report: Greater than or equal to 100,000 colonies/mL of Escherichia coli Plus growth of clinically insignificant bacterial tripp. (.) Comment:Testing performed by : [facility], [address] [facility], [place]., [address] Organism ESCHERICHIA COLI [facility] ([place]) Organism PLUS GROWTH OF CLINICALLY INSIGNIFICANT TRIPP. [facility] ([place]) Urine 08/25/2024 6:34 AM CDT 08/25/2024 11:09 AM CDT Narrative [facility] ([place]) - 08/27/2024 10:01 AM CDT Urine culture reflexed based upon urinalysis results. Testing performed by [facility] ([phone]) Organism Antibiotic Method Susceptibility Escherichia coli Ampicillin INTERPRETATION Susceptible Escherichia coli Cefazolin INTERPRETATION Susceptible Escherichia coli Nitrofurantoin INTERPRETATION Susceptible Escherichia coli Gentamicin INTERPRETATION Susceptible Escherichia coli Trimethoprim with Sulfamethoxazole IN TERPRETATION Susceptible Escherichia coli Meropenem INTERPRETATION Susceptible Escherichia coli Cefepime INTERPRETATION Susceptible Escherichia coli Ciprofloxacin INTERPRETATION Susceptible Escherichia coli Ceftazidime INTERPRETATION Susceptible Escherichia coli Ceftriaxone INTERPRETATION Susceptible Escherichia coli Piperacillin/Tazobactam INTERPRETATIO N Susceptible Escherichia coli Cephalexin INTERPRETATION Susceptible Escherichia coli Cefuroxime-axetil INTERPRETATION Susceptible Escherichia coli Cefdinir INTERPRETATION Susceptible us Brittany Carrillo MD LAB MICROBIOLOGY - GENERAL ORDER BETTY Final Result [facility] ([place]) 1 [facility] [place] [address] from Last 3 Months Insurance [facility] Member Subscriber Plan / Payer (Ef fective 2018-Present) Name:Ronnie August Relation to Subscriber:Self Name:Ronnie August Payer ID:[id number] (NAIC) Group ID:[id number] Type:MEDICAID [id number] OTHER Address: [address] [address] Advance Directives For more information, please contact: [phone] * Full Code (Latest Code Status on File) Date Activated Date Inactivated Comments 05/11/2023 9:26 AM 05/11/2023 4:05 PM * Full Code Date Activated Date Inactivated Comments 06/17/2018 10:29 PM 06/22/2018 4:45 PM Care Teams Structural Welder Relationship Specialty Start Date End Date Daniela Hogan NP PCP - General Family Medicine 03/27/23
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
--- OUTSIDE RECORDS SUMMARY | 2024-10-29 13:00 | XMS_ITS | Encounter Summary ---
Author Organization [facility] Healthcare Address [address] [place] [address] Care Team Providers Care Roll Cutting Operator Name Role Phone Daniela Hogan ONIEL Primary Care Provider [phone] Encounter Details Date Type Department Care Team (Late st Contact Info) Description 10/14/2024 Results Follow-Up [facility] Convenient Care at [place] [address] [place] [address] Mario Arredondo MD [address] [place] [address] US Kidney Complete Social History Tobacco Use Types Packs/Day Years Used Date Smoking Tobacco: Never Smokeless Tobacco: Never [facility] Utilities Answer Date Recorded In the past 12 months has [facility] [employer]), gas, oil, or water [employer] threatened to shut off services in your [...] Never 04/09/2024 How often do you attend christian or cheondoism serv ices? Never 04/09/2024 Do you belong to any clubs o r organizations such as christian groups, unions, fraternal or athletic groups, or [...] staff should administer the PHQ-9) 0 09/18/2024 [facility] of Occupat ional Health - Occupational [...] any time in the past 12 m ont, were you homeless or living in a correction (including now)? No 04/09/2024 Personal Safety Answer Date Recorded Have you ever been in or are you currently in a harmful physical or emotional relationship or is someone making you feel afraid or unsafe? 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
[2024-10-29] MEDS: ONDANSETRON INJ 4 MG/2 ML VIAL IV PUSH (13:16)
[2024-10-29 13:19] LABS: Hematocrit 40.6 % (37.0-47.0); Hemoglobin 13.7 g/dL (12.0-15.0); Immature Granulocyte Percent A 0.1 % (0-0.5); Lymphocytes Absolute Auto 1.06 K/mm3 (0.9-3.2); Mean Corpuscular HGB Conc 33.7 g/dl (32-36); Mean Corpuscular Hemoglobin 29.1 pg (26-34); Mean Corpuscular Volume 86.2 fl (80-100); Nucleated Red Blood Cells Absolute Auto 0.000 K/mm3 (0.0-0.012); Nucleated Red Blood Cells Perc 0.0 % (0.0-0.2); Platelet Count Result 146 k/mm3 (150-375); Red Blood Count 4.71 M/mm3 (4.2-5.4); White Blood Count 6.9 K/mm3 (4.5-10.0)
--- OUTSIDE RECORDS SUMMARY | 2024-10-29 13:26 | XMS_ITS | Encounter Summary ---
Author Organization [facility] Healthcare Address [address] [place] [address] Care Team Providers Care Movie Stunt Performer Name Role Phone Daniela Hogan ONEIL Primary Care Provider [phone] Encounter Details Date Type Department Care Team (Late st Contact Info) Description 10/14/2024 Results Follow-Up [facility] Medical Group Convenient Care at [place] [address] [place] [address] Mario Arredondo MD [address] [place] [address] US Kidney Complete Social History Tobacco Use Types Packs/Day Years Used Date Smoking Tobacco: Never Smokeless Tobacco: Never [facility] Utilities Answer Date Recorded In the past 12 months has [facility] [place], gas, oil, or water [employer] threatened to shut off services in your [...] Never 04/09/2024 How often do you attend baptist or hoahaoism serv ices? Never 04/09/2024 Do you belong to any clubs o r organizations such as baptist groups, unions, fraternal or athletic groups, or [...] staff should administer the PHQ-9) 0 09/18/2024 [facility] of Occupat ional Health - Occupational Stress [...] were you homeless or living in a group home (including now)? No 04/09/2024 Personal Safety Answer Date Recorded Have you ever been in or are you currently in a harmful physical or emotional relationship or is someone making you feel afraid or unsafe? 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
--- OUTSIDE RECORDS SUMMARY | 2024-10-29 13:27 | XMS_ITS | Clinical Summary ---
Author Organization [facility] Address [address] [address] Care Team Providers Care Tax Accountant Name Role Phone EdisonDaniela Roney SANTILLANN-EQUIPMENT ASSOCIATE Primary Care Provider Source Comments [facility],non-owned Affiliates and Associated Physician Practices is amultiple site organization consisting of ambulatory clinics and hospital sitesin [place], [place], [place] and [place]. This disclosure is being madepursuant to the Care Everywhere program and may not contain all information available regarding this patient. Last updated 17.[facility] Allergies Active Allergy Reactions Criticality Noted Date [...] medicine Assessment & Plan (04/11/2013 1:21 PM COMMERCIAL LEASING AGENT): Refer to psychiatry, psychology. Discuss celexa with [...] till she is recovered. 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 May need some accommodations at school to help her focus and prevent headaches. [facility] (well child check) 12/11/201303/17 Assessment & Plan [...] 04/30/2013 Assessment & Plan (04/11/2013 1:17 PM COMMERCIAL LEASING AGENT): Positive urine hcg here also. Referred to [facility]. Discussed avoidance of NSAIDs, alcohol, drugs, tobacco. Stop bactrim, change to clinda. Discussed that her depression meds are category C, and to discuss with her psychiatrist and count team member. Discussed giving it a couple weeks to let the news settle in prior to making any decisions about what to do about the (particularly given that mom, patient, and grandmother have somewhat differing opinions). Give flu vaccine and Tdap booster. PRN zofran (gave 10 tabs for now). Follow up in 2-3 weeks. Skin infection 04/11/2013 03/17/2019 Assessment & Plan (04/11/2013 1:31 PM COMMERCIAL LEASING AGENT): Mild resolving cellulitis of the left earlobe. [...] skin. Plan: Follow closely as an outpatient [facility] psychiatry appointment has been made Today pt states she has not thoughts to hurt herself or anyone else Denies feelings of sadness or depression today Assessment & Plan (04/11/2013 1:22 PM COMMERCIAL LEASING AGENT): Not currently cutting; says she wants to take better care of herself with the baby, encouraged this, has safety plan, referred to psychology/psychiatry. Right flank pain 09/12/2012 04/11/2013 Overview (10/03/2012): Gina has a history of kidney stones and it appears that she just had an admission to [facility] while passing a stone. She continues [...] ultrasound. Referral to Urology- [facility] to [facility] Well child check 04/18/2012 04/30/2013 Overview (10/03/2012): Gina is a 11 y.o. female here for her 11 year [facility]. Normal growth and development. Unsure immunization status. [...] on file Legal Sex Female 5:42 AM COMMERCIAL LEASING AGENT Gender Identity Female 09/27/2017 7:14 PM CDT [...] Probe Negative Negative 10/07/2020 9:56 PM CDT [facility] GC Amplified Probe Negative Negative 10/07/2020 9:56 PM CDT [facility] MICROBIOLOGY Microbiology PART OF UTERINE CERVIX / Unknown Collection / Unknown 10/07/2020 10:59 AM CDT 10/07/2020 11:14 AM CDT Narrative [facility] MICROBIOLOGY - 10/07/2020 9:56 PM CDT Results based on detection/no detection of ribosomal RNA by amplified method. Jory Fletcher OPTIMIZATION MANAGER-EQUIPMENT ASSOCIATE LAB - MICROBIOLOGY ORDER BETTY Final Result [facility] MICROBIOLOGY [address] [place] [address], [facility] [phone] * PAP IG LB RFLX HPV APTIMA ASCU (10/07/2020 10:59 AM CDT) Diagnosis Comment 10/11/2020 5:08 PM CDT [facility] ([facility]) Comment:NEGATIVE FOR INTRAEP ITHELIAL LESION OR MALIGNANCY. Specimen Adequacy Comment 021 5:08 PM CDT [facility] ([facility]) Comment: Satisfactory for evaluation. Endocervical and/or squamous metaplastic cells (endocervical component) are present. Performed by Comment 10/11/2020 5:08 PM CDT [facility] ([facility]) Comment:Freddie Murphy Cytote chnologist (ASCP) Comment . 10/11/2020 5:08 PM CDT [facility] ([facility]) Note Comment 10/11/2020 5:08 PM CDT [facility] ([facility]) Comment: The Pap smear is a screening test designed to aid in the detection of premalignant and malignant conditions of the uterine cervix. It is not a diagnostic procedure and should not be used as the sole means of detecting cervical cancer. Both false-positive and false-negative reports do occur. IGLBP CPT Code Automation Comment 10/11/2020 5:08 PM CDT [facility] ([facility]) Comment: This liquid based ThinPrep(R) pap test was screened with the use of an image guided system. Note Comment 10/11/2020 5:08 PM CDT [facility] ([facility]) Comment: The HPV DNA reflex criteria were not met with this specimen result therefore, no HPV testing was performed. Pathology/Cytolo gy ENTIRE ENDOCERVIX / Unknown Collection / Unknown 10/07/2020 10:59 AM CDT 10/07/2020 11:14 AM CDT [facility]) - 10/11/2020 5:08 PM CDT Performed at: [address] [place] [id number] Aviation Medicine Specialist: Sachi Knowles MD, Phone: [phone] Specimen Comment: No. of containers..01 ThinPrep Vial Jory Fletcher OPTIMIZATION MANAGER-EQUIPMENT ASSOCIATE LAB - PATHOLOGY/CYTOLOGY ORDERABLES Final Result [facility] ([facility]) [address] [place] [address] * HIV-1 HIV-2 ANTIBODY + HIV P24 AG PANEL (10/07/2020 10:59 AM CDT) HIV1/2 Ab + P24 Ag Non Reactive Non Reactive 10/07/2020 12:11 PM CDT [facility] Blood BLOOD SPECIMEN / Unknown Venipuncture / Unknown 10/07/2020 10:59 AM CDT 10/07/2020 11:15 AM CDT [facility] LABORATORY - 10/07/2020 12:11 PM CDT No Laboratory evidence of HIV infection. Jory Fletcher [facility] - CHEMISTRY ORDERABL ES Final Result [facility] [address] [place] [address] * HEPATITIS C ANTIBODY (10/07/2020 10:59 AM CDT) HCV Antibody Screen Non Reactive Non Reactive 10/07/2020 12:11 PM CDT [facility] Blood BLOOD SPECIMEN / Unknown Venipuncture / Unknown 10/07/2020 10:59 AM CDT 10/07/2020 11:15 AM CDT Narrative [facility] - 10/07/2020 12:11 PM CDT Non Reactive - Antibodies to Hepatitis C virus (HCV) were not detected, result does not exclude early acute HCV infection. Jory Fletcher OPTIMIZATION MANAGER-EQUIPMENT ASSOCIATE LAB - CHEMISTRY ORDERABL ES Final Result [facility] [address] [place] [address] from Last 3 Months or Most Recently Relevant to Health Maintenance Insurance [facility] [place] [address] Advance Directives * Full Code (Latest Code [...] 4:35 PM 11/02/2013 3:08 PM Care Teams Tax Accountant Relationship Specialty Start Date End Date Daniela Hogan, OPTIMIZATION MANAGER-EQUIPMENT [place] [address] PCP - General Nurse Practitioner 05/26/23
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
[2024-10-29 13:28] LABS: Add Urine Microscopic? YES; Appearance Urine Cloudy (Clear); Glucose Urine UA Negative (Negative); Leukocyte Esterase Ur Negative LEU/UL (Negative); Nitrate Urine Negative (Negative); Non Pathogenic Casts 0-2; Specific Grav Ur 1.013 (1.001-1.035)
[2024-10-29 13:29] LABS: Alanine Aminotransferase 12 U/L (6-35); Albumin Level 4.5 g/dL (3.5-5.1); Alkaline Phosphatase 51 U/L (38-126); Anion Gap 7 mmol/L (4-12); Aspartate Amino Transferase 22 U/L (14-36); Bilirubin,Total 0.7 mg/dL (0.2-1.3); Blood Urea Nitrogen 3 mg/dL (7-17); Calcium 9.3 mg/dL (8.4-10.2); Carbon Dioxide 27 mmol/L (22-30); Chloride 107 mmol/L (98-107); Estimated CRCL calculation 91 ml/min; Estimated Glomerular Filt Rate > 60; Glucose 94 mg/dL (65-110); Lipase 75 U/L (23-300); Potassium 4.1 mmol/L (3.4-5.0); Sodium 141 mmol/L (137-145); Total Protein 7.3 g/dL (6.3-8.2)
[2024-10-29 14:09] LABS: Pregnancy On Board Control Positive
[2024-10-29 14:40] VITALS: BP 111/78; PULSE 64; RESP 18; O2SAT 100
--- NOTE | 2024-10-29 16:03 | PC.NURSE ---
This RN went in to administer prescribed medications, pt started complaining about the ordered meds. Pt became agitated and arguing with staff, wishing to speak with provider again. Pt declined ordered meds at time of attempted administration. Pt called out after speaking with provider requesting to be discharged.
--- NOTE | 2024-10-29 16:30 | PC.NURSE ---
This RN went in to discharge pt as she requested, after refusing medication. This RN went over provider instructions when pt became agitated again and then showed that she was recording this RN. Pt was told she is not allowed to record staff and security called. Security came to pt room, pt got dressed, and escorted to exit as pt continued yelling.
== END 2024-10-29 16:35 | disposition home or self-care (01) ==
PROVIDERS: PCP Nurse Practitioner
DX: R10.9 Unspecified abdominal pain (principal); Z87.442 Personal history of urinary calculi; F17.200 Nicotine dependence, unspecified, uncomplicated
CPT/HCPCS: 36415; 74176; 80053; 81001; 81025; 83690; 85025; 96374; 99284; J2405